=== PATIENT | female | born 1995 | race Caucasian/White ===

== ENCOUNTER 2017-10-22 09:27 | Emergency (ER) | payer BC ==
[~2017-10-22] VITALS: Ht 160 cm; Wt 86.2 kg
[~2017-10-22 09:27] MED LIST: MOTRIN800 MG PO
[2017-10-22] MEDS ORDERED: CITALOPRAM10 MG PO (09:31)
[2017-10-22] MEDS ORDERED: Motrin,Rufen800 MG PO (10:35)
== END 2017-10-22 10:47 | disposition home or self-care (01) ==
LOC: ED 09:27
DX: S60.221A Contusion of right hand, initial encounter (principal); Z79.899 Other long term (current) drug therapy; W19.XXXA Unspecified fall, initial encounter; Y93.89 Activity, other specified; Y92.89 Other specified places as the place of occurrence of the external cause; Y99.9 Unspecified external cause status

== ENCOUNTER → 2020-03-23 | Outpatient (CLI) | payer OTHER ==
[~2020-03-23] MED LIST changes: +CITALOPRAM10 MG PO; +Motrin,Rufen800 MG PO
== END | disposition home or self-care (01) ==
LOC: COVID19 09:58
PROVIDERS: ATTEND Internal Medicine
DX: U07.1 COVID-19 (principal)